=== PATIENT | female | born 1985 | race Caucasian/White ===

== ENCOUNTER 2021-11-18 18:48 | Inpatient (IN) | payer OTHER ==
[~2021-11-18] VITALS: Ht 160 cm; Wt 74.1 kg
[2021-11-18] MEDS ORDERED: OXCA300T57 PO (19:06)
[2021-11-18] MEDS ORDERED: LEVE250T4 PO (19:06)
[2021-11-18] MEDS ORDERED: SODIUM CHLORIDE 0.9% 1,000 ML IV ONE ×2 (19:45→21:15)
[2021-11-18] MEDS ORDERED: LevETIRAcetam 500 MG TABLET PO ONE (19:45)
[2021-11-18] MEDS ORDERED: ONDANSETRON HCL 4 MG/2 ML VIAL IVP ONE (19:45)
[2021-11-18] MEDS ORDERED: KETOROLAC TROMETHAMINE 30 MG/ML VIAL IVP ONE (19:45)
[2021-11-18 20:12] LABS: BASOPHILS % (AUTO) 0.3 % (0.0-2.0); HEMATOCRIT 32.3 % (36-46); HEMOGLOBIN 10.4 g/dL (12.0-16.0); LYMPHOCYTES # (AUTO) 0.9 K/uL (1.0-4.8); LYMPHOCYTES % (AUTO) 16.3 % (22.0-44.0); MEAN CORPUSCULAR HEMOGLOBIN 23.9 pg (26.0-34.0); MEAN CORPUSCULAR HGB CONC 32.3 G/dL (31.0-37.0); MEAN CORPUSCULAR VOLUME 74 fL (80-100); MONOCYTES # (AUTO) 0.2 K/uL (0.1-1.0); MONOCYTES % (AUTO) 4.5 % (2.0-9.0); NEUTROPHILS # (AUTO) 4.2 K/uL (1.8-7.7); NEUTROPHILS % (AUTO) 76.9 % (40.0-70.0); PLATELET COUNT (AUTO) 285 K/uL (150-450); RED BLOOD CELL COUNT(AUTO) 4.37 MIL/uL (4.00-5.20); RED CELL DISTRIBUTION WIDTH 15.4 % (11.5-14.5)
[2021-11-18 20:21] LABS: ANION GAP 8 mmol/L (8-16); CALCIUM, TOTAL 8.9 mg/dL (8.8-10.5); CARBON DIOXIDE 27 mmol/L (22-29); CHLORIDE 104 mmol/L (98-107); CREATININE 0.68 mg/dL (0.60-1.30); GLOMERULAR FILTR. RATE CALC > 60 mL/min (>60); GLUCOSE,RANDOM 93 mg/dL (70-110); POTASSIUM 3.5 mmol/L (3.5-5.1); SODIUM SERUM 139 mmol/L (136-145); UREA NITROGEN, BLOOD 7 mg/dL (7-18)
[2021-11-18 20:27] LABS: ALANINE AMINOTRANSFERASE 16 U/L (12-78); ALBUMIN 3.3 g/dL (3.4-5.0); ALKALINE PHOSPHATASE 64 U/L (46-116); ASPARTATE AMINOTRANSFERASE 17 U/L (15-37); BILIRUBIN,TOTAL 0.4 mg/dL (0.1-1.0); TOTAL PROTEIN, SERUM 7.2 g/dL (6.4-8.2)
[2021-11-18] MEDS ORDERED: ONDANSETRON HCL 4 MG/2 ML VIAL IVP PRN (21:15)
[2021-11-18] MEDS ORDERED: MAGNESIUM HYDROXIDE SUSPENSION 30 ML UDCUP PO PRN (21:15)
[2021-11-18] MEDS ORDERED: ZOLPIDEM TARTRATE 5 MG TABLET PO PRN (21:15)
[2021-11-18 21:25] LABS: HCG,QUANTITATIVE < 1 mIU/mL (0-6)
[2021-11-18 22:19] LABS: COVID AG,FIA SOURCE NASOPHARYNGEAL
[2021-11-18 22:53] VITALS: BP 112/70
[2021-11-19 04:55] VITALS: BP 114/66
[2021-11-19 07:32] VITALS: BP 105/70
[2021-11-19] MEDS: LevETIRAcetam 500 MG TABLET PO SCH ×2 (08:19→20:12)
[2021-11-19] MEDS: FAMOTIDINE 20 MG TABLET PO SCH (08:19)
[2021-11-19] MEDS: LORazepam 2 MG/ML VIAL IVP PRN ×2 (08:33→20:16)
[2021-11-19 10:52] LABS: AMPHET/METH SCREEN,URINE POSITIVE (NEGATIVE); BARBITURATE SCREEN, URINE NEGATIVE (NEGATIVE); BENZODIAZEPINES SCREEN,URINE NEGATIVE (NEGATIVE); CANNABINOID SCREEN,URINE NEGATIVE (NEGATIVE); COCAINE SCREEN,URINE NEGATIVE (NEGATIVE); METHADONE SCREEN, URINE NEGATIVE (NEGATIVE); OPIATE SCREEN,URINE NEGATIVE (NEGATIVE)
[2021-11-19 10:59] LABS: PHENCYCLIDINE SCREEN,URINE NEGATIVE (NEGATIVE)
[2021-11-19] MEDS: ACETAMINOPHEN 325 MG TABLET PO PRN (11:04)
[2021-11-19 15:39] VITALS: BP 114/76
[2021-11-19 19:45] VITALS: BP 112/63
[2021-11-20 04:45] VITALS: BP 118/57
[2021-11-20] MEDS: ACETAMINOPHEN 325 MG TABLET PO PRN ×3 (05:16→23:59)
[2021-11-20] MEDS: LORazepam 2 MG/ML VIAL IVP PRN ×3 (05:16→20:35)
[2021-11-20 07:24] VITALS: BP 108/60
[2021-11-20] MEDS: LevETIRAcetam 500 MG TABLET PO SCH ×2 (07:59→20:00)
[2021-11-20] MEDS: FAMOTIDINE 20 MG TABLET PO SCH (07:59)
[2021-11-20 12:25] VITALS: BP 114/62
[2021-11-20 15:26] VITALS: BP 119/64
[2021-11-20 20:22] VITALS: BP 109/63
[2021-11-21 05:18] VITALS: BP 110/69
[2021-11-21] MEDS: LORazepam 2 MG/ML VIAL IVP PRN (05:27)
[2021-11-21 07:55] VITALS: BP 118/69
[2021-11-21] MEDS: LevETIRAcetam 500 MG TABLET PO SCH ×2 (08:32→20:10)
[2021-11-21] MEDS: OXcarbazepine 300 MG TABLET PO SCH ×2 (08:32→20:10)
[2021-11-21] MEDS: FAMOTIDINE 20 MG TABLET PO SCH (08:32)
[2021-11-21 16:25] VITALS: BP 104/69
[2021-11-21] MEDS: ACETAMINOPHEN 325 MG TABLET PO PRN ×2 (16:25→21:17)
[2021-11-21 19:35] VITALS: BP 110/59
[2021-11-22] MEDS: ACETAMINOPHEN 325 MG TABLET PO PRN ×2 (01:45→16:17)
[2021-11-22 04:15] VITALS: BP 115/66
[2021-11-22 08:07] VITALS: BP 105/59
[2021-11-22] MEDS: OXcarbazepine 300 MG TABLET PO SCH (08:28)
[2021-11-22] MEDS: LevETIRAcetam 500 MG TABLET PO SCH (08:28)
[2021-11-22] MEDS: FAMOTIDINE 20 MG TABLET PO SCH (08:28)
[2021-11-22] MEDS ORDERED: FAMO20 PO (11:34)
[2021-11-22] MEDS ORDERED: LEVE500T20 PO (11:36)
[2021-11-22] MEDS ORDERED: OXCA300T57 PO (11:37)
[2021-11-22] MEDS ORDERED: ACET650S24 PR (11:39)
[2021-11-22] MEDS ORDERED: MAGN-169 PO (11:40)
[2021-11-22] MEDS ORDERED: ACET-2247 PO (11:44)
[2021-11-22 15:49] VITALS: BP 99/63
[2021-11-22] MEDS ORDERED: OXcarbazepine 300 MG TABLET PO SCH (21:00)
== END 2021-11-22 18:45 | DRG 897 ==
LOC: EMS 18:52 → 6S 22:55
PROVIDERS: ADMIT Internal Medicine; ATTEND Internal Medicine
DX: F11.23 Opioid dependence with withdrawal (principal); G40.909 Epilepsy, unspecified, not intractable, without status epilepticus; F17.210 Nicotine dependence, cigarettes, uncomplicated; Z20.822 Contact with and (suspected) exposure to COVID-19; Z79.899 Other long term (current) drug therapy
CPT/HCPCS: 80053; 84702; 85025; 99285; J1885; J2060; J2405; J7030

== ENCOUNTER 2022-06-24 17:03 | Inpatient (IN) | payer OTHER ==
[~2022-06-24] VITALS: Ht 160 cm; Wt 70.9 kg
[~2022-06-24 17:03] MED LIST: ACET-2247 PO; FAMO20 PO; LEVE500T20 PO; MAGN-169 PO; OXCA300T57 PO
[2022-06-24] MEDS ORDERED: SODIUM CHLORIDE 0.9% 1,000 ML IV ONE (17:45)
[2022-06-24] MEDS ORDERED: ONDANSETRON HCL 4 MG/2 ML VIAL IVP ONE (17:45)
[2022-06-24] MEDS ORDERED: KETOROLAC TROMETHAMINE 30 MG/ML VIAL IVP ONE (17:45)
[2022-06-24] MEDS ORDERED: MAGNESIUM HYDROXIDE SUSPENSION 30 ML UDCUP PO PRN (18:30)
[2022-06-24] MEDS ORDERED: ONDANSETRON HCL 4 MG/2 ML VIAL IVP PRN (18:30)
[2022-06-24 18:36] LABS: EOSINOPHILS % (AUTO) 1.9 % (1.0-6.0); HEMATOCRIT 35.8 % (36-46); HEMOGLOBIN 11.7 g/dL (12.0-16.0); LYMPHOCYTES # (AUTO) 1.3 K/uL (1.0-4.8); LYMPHOCYTES % (AUTO) 18.4 % (22.0-44.0); MEAN CORPUSCULAR HEMOGLOBIN 24.7 pg (26.0-34.0); MEAN CORPUSCULAR HGB CONC 32.7 G/dL (31.0-37.0); MEAN CORPUSCULAR VOLUME 76 fL (80-100); MONOCYTES # (AUTO) 0.5 K/uL (0.1-1.0); MONOCYTES % (AUTO) 6.8 % (2.0-9.0); NEUTROPHILS # (AUTO) 5.2 K/uL (1.8-7.7); NEUTROPHILS % (AUTO) 71.9 % (40.0-70.0); PLATELET COUNT (AUTO) 295 K/uL (150-450); RED BLOOD CELL COUNT(AUTO) 4.73 MIL/uL (4.00-5.20); RED CELL DISTRIBUTION WIDTH 14.1 % (11.5-14.5)
[2022-06-24 18:38] LABS: ANION GAP 7 mmol/L (8-16); CALCIUM, TOTAL 9.4 mg/dL (8.8-10.5); CARBON DIOXIDE 26 mmol/L (22-29); CHLORIDE 102 mmol/L (98-107); CREATININE 0.74 mg/dL (0.60-1.30); GLUCOSE,RANDOM 97 mg/dL (70-110); POTASSIUM 3.9 mmol/L (3.5-5.1); SODIUM SERUM 135 mmol/L (136-145); UREA NITROGEN, BLOOD 9 mg/dL (7-18)
[2022-06-24 18:40] LABS: COVID AG,FIA SOURCE NASOPHARYNGEAL
[2022-06-24 18:43] LABS: GLOMERULAR FILTR. RATE CALC > 60 mL/min (>60)
[2022-06-24 18:44] LABS: ALANINE AMINOTRANSFERASE 13 U/L (12-78); ALBUMIN 3.7 g/dL (3.4-5.0); ALKALINE PHOSPHATASE 74 U/L (46-116); ASPARTATE AMINOTRANSFERASE 16 U/L (15-37); BILIRUBIN,TOTAL 0.3 mg/dL (0.1-1.0); TOTAL PROTEIN, SERUM 7.9 g/dL (6.4-8.2)
[2022-06-24 19:02] LABS: PLATELET MORPHOLOGY COMMENT LARGE PLTS PRESENT
[2022-06-24 19:44] LABS: AMPHET/METH SCREEN,URINE POSITIVE (NEGATIVE); BARBITURATE SCREEN, URINE NEGATIVE (NEGATIVE); BENZODIAZEPINES SCREEN,URINE NEGATIVE (NEGATIVE); CANNABINOID SCREEN,URINE NEGATIVE (NEGATIVE); COCAINE SCREEN,URINE NEGATIVE (NEGATIVE); METHADONE SCREEN, URINE NEGATIVE (NEGATIVE); OPIATE SCREEN,URINE NEGATIVE (NEGATIVE)
[2022-06-24 19:47] LABS: PHENCYCLIDINE SCREEN,URINE NEGATIVE (NEGATIVE)
[2022-06-24 21:00] VITALS: BP 108/62
[2022-06-24] MEDS: OXcarbazepine 300 MG TABLET PO SCH (22:25)
[2022-06-24] MEDS: LevETIRAcetam 500 MG TABLET PO SCH (22:25)
[2022-06-25 04:48] VITALS: BP 106/57
[2022-06-25] MEDS: ACETAMINOPHEN 325 MG TABLET PO PRN (05:08)
[2022-06-25 07:25] VITALS: BP 109/46
[2022-06-25] MEDS: OXcarbazepine 300 MG TABLET PO SCH ×2 (08:34→20:12)
[2022-06-25] MEDS: LevETIRAcetam 500 MG TABLET PO SCH ×2 (08:35→20:12)
[2022-06-25] MEDS: FAMOTIDINE 20 MG TABLET PO SCH (08:35)
[2022-06-25] MEDS ORDERED: LORazepam 2 MG/ML VIAL IVP PRN (13:30)
[2022-06-25 17:45] VITALS: BP 119/60
[2022-06-25 20:00] VITALS: BP 101/58
[2022-06-25] MEDS: LORazepam 2 MG/ML VIAL IVP PRN (23:06)
[2022-06-25] MEDS: ZOLPIDEM TARTRATE 5 MG TABLET PO PRN (23:07)
[2022-06-26 05:00] VITALS: BP 114/66
[2022-06-26] MEDS: LevETIRAcetam 500 MG TABLET PO SCH ×2 (08:16→20:02)
[2022-06-26] MEDS: OXcarbazepine 300 MG TABLET PO SCH ×2 (08:16→20:02)
[2022-06-26] MEDS: FAMOTIDINE 20 MG TABLET PO SCH (08:17)
[2022-06-26 08:32] VITALS: BP 105/54
[2022-06-26] MEDS: LORazepam 2 MG/ML VIAL IVP PRN (11:48)
[2022-06-26] MEDS ORDERED: LORazepam 1 MG TABLET PO ONE (14:15)
[2022-06-26 15:29] VITALS: BP 112/58
[2022-06-26 19:44] VITALS: BP 115/61
[2022-06-26] MEDS: ACETAMINOPHEN 325 MG TABLET PO PRN (20:03)
[2022-06-26] MEDS: ZOLPIDEM TARTRATE 5 MG TABLET PO PRN (23:25)
[2022-06-27 04:38] VITALS: BP 118/74
[2022-06-27 07:22] VITALS: BP 117/85
[2022-06-27] MEDS: OXcarbazepine 300 MG TABLET PO SCH ×2 (08:08→20:23)
[2022-06-27] MEDS: FAMOTIDINE 20 MG TABLET PO SCH (08:08)
[2022-06-27] MEDS: LevETIRAcetam 500 MG TABLET PO SCH ×2 (08:08→20:22)
[2022-06-27] MEDS: ACETAMINOPHEN 325 MG TABLET PO PRN ×2 (08:11→15:36)
[2022-06-27] MEDS ORDERED: ONDANSETRON HCL 4 MG TABLET PO PRN (11:45)
[2022-06-27] MEDS ORDERED: ONDANSETRON HCL 4 MG/2 ML VIAL PO PRN (12:30)
[2022-06-27 15:30] VITALS: BP 105/63
[2022-06-27 20:04] VITALS: BP 108/65
[2022-06-27] MEDS: HydrOXYzine HCL 25 MG TABLET PO SCH (20:22)
[2022-06-28 04:53] VITALS: BP 121/75
[2022-06-28 07:51] VITALS: BP 91/57
[2022-06-28] MEDS: LevETIRAcetam 500 MG TABLET PO SCH (08:08)
[2022-06-28] MEDS: OXcarbazepine 300 MG TABLET PO SCH (08:08)
[2022-06-28] MEDS: HydrOXYzine HCL 25 MG TABLET PO SCH (08:08)
[2022-06-28] MEDS: FAMOTIDINE 20 MG TABLET PO SCH (08:08)
[2022-06-28] MEDS: ACETAMINOPHEN 325 MG TABLET PO PRN (08:09)
[2022-06-28] MEDS ORDERED: HYDR-4527 PO (12:39)
[2022-06-28 16:15] VITALS: BP 102/54
== END 2022-06-28 17:40 | DRG 101 ==
LOC: EMS 17:10 → 6S 21:00
PROVIDERS: ADMIT Internal Medicine; ATTEND Internal Medicine
DX: G40.909 Epilepsy, unspecified, not intractable, without status epilepticus (principal); F19.139 Other psychoactive substance abuse with withdrawal, unspecified; F11.23 Opioid dependence with withdrawal; F17.200 Nicotine dependence, unspecified, uncomplicated; Z20.822 Contact with and (suspected) exposure to COVID-19; F41.9 Anxiety disorder, unspecified; Z79.899 Other long term (current) drug therapy
CPT/HCPCS: 80053; 80307; 85025; 99285; J1885; J2060; J2405; Q0162